=== PATIENT | female | born 1955 | race Caucasian/White ===

== ENCOUNTER → 2017-02-10 | Outpatient (CLI) | payer OTHER ==
--- NOTE | ~2017-02-10 | US5 ---
[facility] A Service of [facility] RADIOLOGY TEXT RESULTS PATIENT: NORMA MCCALL LOCATION: SGUS : 57 UNIT #: [id number] AGE: [address]: Juan Viera MD SEX: F ORDER DR: [id number] [place] [id number] O MR#: [id number] Acc #: [id number] NAME: NORMA MCCALL : 1955 SEX: F STUDY DATE/TIME: 02/10/2017 8:14 UNIT: SGUS ROOM: STUDY DESCRIPTION: US Abdominal Complete Attending Physician: Juan Viera Jr., M.D. Referring Physician: Juan Viera Jr., M.D. Ordering Physician: Juan Viera Jr., M.D. Primary Care Physician: Juan Viera Jr., M.D. MEDICAL IMAGING REPORT This report is preliminary unless electronic signature is present. EXAM Ultrasound of the abdomen complete, 02/10/2017 INDICATIONS Elevated liver enzymes for the past month. On Lipitor. FINDINGS Sonographic imaging of the abdomen was performed. No comparisons FINDINGS Visualized aspects of the pancreas are unremarkable. Significant portions were obscured by bowel gas and not seen or evaluated. The liver measures 21 cm long axis and demonstrates mild fatty infiltration. There is no ascites, focal liver mass or intra or extrahepatic ductal dilatation. The kidneys are nonobstructed with the right measuring 10 cm long axis and the left measuring 9.9 cm. No shadowing stone on either side. The gallbladder is sonographically unremarkable. Extrahepatic common bile duct measures 2 mm. Segmentally visualized aorta and IVC unremarkable. Spleen measures 9.5 cm long axis. Probable small granulomatous calcifications in the spleen. IMPRESSION 1. Borderline to mild hepatomegaly with fatty infiltration of the liver. 2. Limited evaluation of the pancreas; otherwise, negative abdominal ultrasound. Dictated by... Santi Saucedo M.D. [facility] A Service [facility] RADIOLOGY TEXT RESULTS PATIENT: NORMA MCCALL LOCATION: SGUS : 57 UNIT #: [id number] AGE: [address]: Juan Viera MD SEX: F ORDER DR: THIS IS AN ELECTRONICALLY VERIFIED REPORT Santi Saucedo M.D. at 02/10/2017 3:28 PM [place] TD: 02/10/2017 12:25 JOB #: [id number] MEDICAL IMAGING REPORT Page 1 of 1
== END | disposition home or self-care (01) ==
LOC: SGUS 07:54
DX: R79.89 Other specified abnormal findings of blood chemistry (principal); K76.0 Fatty (change of) liver, not elsewhere classified
CPT/HCPCS: 76700

== ENCOUNTER → 2017-04-16 | Outpatient (CLI) | payer OTHER ==
[2017-04-16 14:58] LABS: HEMATOCRIT 45.6 % (35.0-45.0); HEMOGLOBIN 15.4 gm/dL (12.0-16.0); MEAN CELL VOLUME 87.4 FL (83-96); MEAN CORPUSCULAR HEMOGLOBIN 29.6 PG (28-34); MEAN CORPUSCULAR HGB CONC 33.9 g/dL (30-36); MEAN PLATELET VOLUME 10.3 FL (6.5-11.5); RED BLOOD COUNT 5.22 X10e (3.90-5.30); RED CELL DISTRIBUTION WIDTH 12.6 % (11.0-15.5); WHITE BLOOD COUNT 5.3 X10e3 (4.0-10.5)
[2017-04-16 15:57] LABS: ALBUMIN SERUM 4.5 g/dL (3.5-5.0); BILIRUBIN,TOTAL 0.6 mg/dL (0.2-2.0); CALCIUM SERUM 9.9 mg/dL (8.4-10.2); CREATININE SERUM 0.8 mg/dL (0.6-1.4); GLOM FILT RATE Estimated 80.2 mL/min (>60); POTASSIUM 4.1 mmol/L (3.5-5.1); PROTEIN TOTAL SERUM 7.1 g/dL (6.0-8.3)
[2017-04-20 22:22] LABS: ANA SCREEN Negative (Negative); HA AB IGM (HEPPAN) Nonreactive (()); HB CORE AB IGM (HEPPAN) Nonreactive (Nonreactive); HB S AG (HEPPAN) Nonreactive (Nonreactive); HEP C AB (HEPPAN) Nonreactive (Nonreactive); HEP C AB SIGNAL TO CUTOFF 0.01 ratio (<1.00)
== END | disposition home or self-care (01) ==
LOC: CLAB 14:32
PROVIDERS: Internal Medicine
DX: R10.9 Unspecified abdominal pain (principal); R79.89 Other specified abnormal findings of blood chemistry
CPT/HCPCS: 36415; 80053; 80074; 82105; 83516; 83520; 85027; 86038; 86039